=== PATIENT | female | born 2005 | race Caucasian/White ===

== ENCOUNTER 2024-09-27 06:13 | Outpatient (REF) | payer BC, SELFPAY ==
--- NOTE | ~2024-09-27 | US_ITS ---
CLINICAL HISTORY: Unable to feel IUD string, check placement Transabdominal and transvaginal pelvic ultrasound Comparison: None Findings: Uterus 6.5 x 2.4 x 3.7 cm. Endometrium 2 mm. IUD noted in proper position. No significant free fluid. Right ovary 3.0 x 1.2 x 1.7 cm. Left ovary 3.4 x 1.4 x 1.8 cm. No significant focal abnormality. Impression: No significant abnormality This document has been electronically signed by: Stuart Amaya MD on 09/27/2024 19:46:02
--- OUTSIDE RECORDS SUMMARY | 2024-09-27 06:16 | XMS_ITS | Data Portability ---
Author Organization [place] [facility], [facility] Address [id number] [place] [address] Care Team Providers Care Forest Aide Name Role Phone LAURENT DIAZ Primary Care Provider Assessment Encounter Date Assessment Date Assessment LastModified by Organization Details LastModified Time 01/06/2023 01/06/2023 17yo here today to for annual visit She is currently on Tamy FE and likes it. 2 months ago, finished her pack and did not get a period during the 4 days of placebo pills. She then started her new pack. 2 weeks in she got spotting for 2-3 days. She then finished the pack but during the placebo pills did not get her period again. She wanted to wait to get her period so she did not start her new pack for two weeks and never got a period. She restarted and is now two weeks in. We discussed how you can not get a period while on cocp, especially when there are only 4 days placebo. We also discussed the importance of taking the first week of pills on time to prevent ovulation. Taking those pills late will put her at higher risk for . She should wear a condom/abstain for sex until she has taken the pill for seven days but recommended one month. test was negative. I will get blood work including TSH, prolactin, estrogen, FSH, testosterone, bHCG since she normally gets a full period and this is a change but most likely her period will regulate. SHe may have some spotting due to starting to cocps late. She likes the control she is on. Will have her follow up in 3 months to evaluate cycle and cocp type. Physical exam benign, GCC collected. PHQ neg She has received gardisil. All questions answered, she can follow up prn/annually shusung Not available 01/06/2023 15:05:54 05/19/2023 05/19/2023 17yo female here for her ocp check. At her annual she explained she was not getting periods so she stopped taking her pill until she would get her period. We discussed it is normal to not get periods while on cocp and it is important to take consistently. She has been taking her pill at the same time very day for 3 months and reports normal cycles again. I will refill her cocp for 1 year. She can follow up annually/prn shusung Not available 05/19/2023 13:50:13 01/14/2024 01/14/2024 18yo nulliparous woman presenting for annual exam Using cocp for contraception and content with it No [employer] complaints Physical exam showed evidence of yeast .Culture obtained. GCC collected too PHQ Neg SBE encouraged Patient has received gardasil All questions answered, she can follow up prn/annually. best Not available 01/14/2024 10:57:28 08/23/2024 08/23/2024 Telehealth visit to discuss IUD. She is currently on the pill but wants to switch to an IUD. Discussed all IUDs, she would like the mirena so she is covered for 8 years. Discussed placement process, coming from school so will not be able to leave test the day before which is ok will do it the day of. She would like a cervical block with placement. Discussed risks of placement. Aware she can have irreg bleeding for 6 months. [email or web address] Not available 08/23/2024 15:07:59 09/08/2024 09/08/2024 18yo here today for IUD insertion. Was a difficult placement but Dr. Coreas was able to place IUD. Patient did have cramping and some nausea following placement. Improved with time/cold paper towels. Post procedure precautions were reviewed with patient: RTC/Call for heavy bleeding that soaks thru pad/hr, severe abdominal/pelvic pain not controlled with analgesics (ibuprofen, etc), fever > 100.4, chills, foul vaginal odor, change in the length of the string or if the string is not palpable or any other concerns regarding IUD. Check string once daily for first 7 days. Pelvic rest x 72 hours. Pt to expect changes in menstrual pattern that may last for 6-12 months while adjusting to IUD. Pt may stop having menses or it may become very light/scant. Pt to notify me immediately for s/s of . Check for IUD string after each period or monthly if no period occurs. If string length changes or cannot be felt call/RTC for further evaluation. Pt to RTC for f/u US in 2 weeks. [email or web address] Not available 09/08/2024 15:23:34 Plan of Treatment Reminders Order Date Submit Date Provider Last Modified By Organization Details Last Modified Time Details Appointments ANNUAL [facility] 15 2024 10:15A M ALANIS Francois Not available Not available Not available Lab test, urine 2024 025 best In-Office Order, Internal Use Only DO Not Attach Compendium DO Not Attach Compendium, Do Not Delete/merge, [id number] 09/08/2024 17:23:27 Referral None recorded. Procedures None recorded. Surgeries None recorded. Imaging None recorded. Medication Orders [place] 24 Fe 1 mg-20 mcg (24)/75 mg (4) tablet 2022 023 [facility] #[id number], [address] [place], [address], 05/19/2023 13:45:54 Patient TargetsNo targets recorded. Patient InstructionsNo instructions recorded. Reason for Referral None Reported. Results Created Date Observation Date Name Description Value Unit Range Abnormal Flag Note LastModifiedBy Organization Detail LastModifiedTime 01/07/2001/08/2023 CHLAM YDIA/ N. GONOR RHOEA E RNA, TMA, UROGE NITAL chlamydia trachomatis RNA, tma, urogenital NOT DETECT ED not detect ed normal Not Available [facility] [address] [place], [place], [address], 01/08/2023 10:34:05 01/07/2001/08/2023 CHLAM YDIA/ N. GONOR RHOEA E RNA, TMA, UROGE NITAL neisseria gonorrhoeae RNA, tma, urogenital NOT DETECT ED not detect ed normal Not Available [facility] [place] [facility] [address], [place], [address], 01/08/2023 10:34:05 01/07/20 23 01/08/2023 CHLAM YDIA/ N. GONOR RHOEA E RNA, TMA, UROGE NITAL comment The kaveh tical perfo rmanc e debi cteri stics of this assay , when used to test SureP ath(T M) speci mens have been deter mined by [facility]. The modif icati ons have not been clear ed or appro simi by the FDA. This assay has been valid ated pursu ant to the CLIA regul ation s and is used for clini andrew purpo ses. For addit ional infor catina hollins refer to https ://ed ucati on.qu estSaber Seven. com/f aq/FA Q154 (This link is being provi ded for infor mellissa n/ educa marsha l purpo ses only. ) Not Available [facility] [place] [facility] [address], [place], [address], 01/08/2023 10:34:05 01/07/20 23 01/10/2023 TESTO STERO NE, FREE, BIOAV AILAB LE AND TOTAL , MS testosterone , total, MS 22 NG/dL 2-45 For addit ional infor catina hollins e refer to http: //pam byrdque stdia gnost ics.c om/fa q/ Total Testo stero neLCM SMSFA Q165 (This link is being provi ded for infor matio nal/ educa marsha l purpo ses only. ) This test was devel oped and its kaveh tical perfo rmanc e debi cteri stics have been deter mined by [facility] RAOUL Johnson. It has not been clear ed or appro simi by the U.S. Food and Drug Admin istra tion. This assay has been valid ated pursu ant to the [place] [facility] ation s and is used for clini andrew purpo ses. Not Available [facility] [place] [facility] [address], [place], [address], 01/10/2023 14:51:05 01/07/20 23 01/10/2023 TESTO STERO NE, FREE, BIOAV AILAB LE AND TOTAL , MS testosterone , free 0.7 pg/mL 0.2-5. 0 Not Available [facility] [place] [facility] [address], [place], [address], 01/10/2023 14:51:05 01/07/2001/10/2023 TESTO STERO NE, FREE, BIOAV AILAB LE AND TOTAL , MS testosterone ,bioavailabl e 1.4 NG/dL 0.5-8. 5 Not Available [facility] [place] [facility] [address], [place], [address], 01/10/2023 14:51:05 01/07/20 23 01/10/2023 TESTO STERO NE, FREE, BIOAV AILAB LE AND TOTAL , MS sex hormone binding globulin 150 nmol/ L 17-124 high Not Available [facility] [address], [place], [address], 01/10/2023 14:51:05 01/07/2001/10/2023 TESTO STERO NE, FREE, BIOAV AILAB LE AND TOTAL , MS albumin 4.5 g/dL 3.6-5. 1 Not Available [facility] [place] [facility] [address], [address], 01/10/2023 14:51:05 01/07/20 23 01/10/2023 CBC (INCL UDES DIFF/ PLT) white blood cell count 7.0 thous and/u L 3.8-10 .8 normal Not Available [facility] [address] [place], [address], 01/10/2023 14:51:06 01/07/20 23 01/10/2023 CBC (INCL UDES DIFF/ PLT) red blood cell count 4.45 nils on/uL 3.80-5 .10 normal Not Available [facility] [address], [place], [address], 01/10/2023 14:51:06 01/07/20 23 01/10/2023 CBC (INCL UDES DIFF/ PLT) hemoglobin 13.3 g/dL 11.7-1 5.5 normal Not Available [facility] [address], [place], [address], 01/10/2023 14:51:06 01/07/20 23 01/10/2023 CBC (INCL UDES DIFF/ PLT) hematocrit 41.0 % 35.0-4 5.0 normal Not Available [facility] [address], [place], [address], 01/10/2023 14:51:06 01/07/20 23 01/10/2023 CBC (INCL UDES DIFF/ PLT) MCV 92.1 fL 80.0-1 00.0 normal Not Available [facility] [address], [place], [address], 01/10/2023 14:51:06 01/07/20 23 01/10/2023 CBC (INCL UDES DIFF/ PLT) MCH 29.9 pg 27.0-3 3.0 normal Not Available [facility] [address], [place], [address], 01/10/2023 14:51:06 01/07/20 23 01/10/2023 CBC (INCL UDES DIFF/ PLT) MCHC 32.4 g/dL 32.0-3 6.0 normal Not Available [facility] [place] [facility] [address], [place], [address], 01/10/2023 14:51:06 01/07/20 23 01/10/2023 CBC (INCL UDES DIFF/ PLT) RDW 12.2 % 11.0-1 5.0 normal Not Available [facility] [place] [facility] [address], [place], [address], 01/10/2023 14:51:06 01/07/20 23 01/10/2023 CBC (INCL UDES DIFF/ PLT) platelet count 335 thous and/u L 140-40 0 normal Not Available [facility] [address], [place], [address], 01/10/2023 14:51:06 01/07/20 23 01/10/2023 CBC (INCL UDES DIFF/ PLT) MPV 9.6 fL 7.5-12 .5 normal Not Available [facility] [address], [place], [address], 01/10/2023 14:51:06 01/07/20 23 01/10/2023 CBC (INCL UDES DIFF/ PLT) absolute neutrophils 3864 cells /uL 1500-7 800 normal Not Available [facility] [address], [place], [address], 01/10/2023 14:51:06 01/07/20 23 01/10/2023 CBC (INCL UDES DIFF/ PLT) absolute lymphocytes 2387 cells /uL 850-39 00 normal Not Available [facility] [address], [place], [address], 01/10/2023 14:51:06 01/07/20 23 01/10/2023 CBC (INCL UDES DIFF/ PLT) absolute monocytes 546 cells /uL 200-95 0 normal Not Available [facility] [address], [place], [address], 01/10/2023 14:51:06 01/07/20 23 01/10/2023 CBC (INCL UDES DIFF/ PLT) absolute eosinophils 140 cells /uL 15-500 normal Not Available [facility] [place] [facility] [address], [place], [address], 01/10/2023 14:51:06 01/07/20 23 01/10/2023 CBC (INCL UDES DIFF/ PLT) absolute basophils 63 cells /uL 0-200 normal Not Available [facility] [place] [facility] [address], [place], [address], 01/10/2023 14:51:06 01/07/20 23 01/10/2023 CBC (INCL UDES DIFF/ PLT) neutrophils 55.2 % normal Not Available [facility] [place] [facility] [address], [place], [address], 01/10/2023 14:51:06 01/07/20 23 01/10/2023 CBC (INCL UDES DIFF/ PLT) lymphocytes 34.1 % normal Not Available [facility] [place] [facility] [address], [place], [address], 01/10/2023 14:51:06 01/07/20 23 01/10/2023 CBC (INCL UDES DIFF/ PLT) monocytes 7.8 % normal Not Available [facility] [place] [facility] [address], [place], [address], 01/10/2023 14:51:06 01/07/20 23 01/10/2023 CBC (INCL UDES DIFF/ PLT) eosinophils 2.0 % normal Not Available [facility] [place] [facility] [address], [place], [address], 01/10/2023 14:51:06 01/07/20 23 01/10/2023 CBC (INCL UDES DIFF/ PLT) basophils 0.9 % normal Not Available [facility] [place] [facility] [address], [place], [address], 01/10/2023 14:51:06 09/09/19 25 09/08/2024 pregn junaid test, urine Result negati ve Not Available In-Office Order Internal Use Only DO Not Attach Compendium DO Not Attach Compendium, Do Not Delete/merge, [id number] 09/08/2024 14:20:38 Result Notes None recorded. Problems No Known Problems Procedures Surgical History Date Name Laterality Status Provider Name and Address Organization Details Recorded Time 5 IUD Insert completed ALANIS FRANCOIS [address] [place] [address], [phone], [facility] 09/08/2024 15:22:16 procedure on nasal septum completed ALANIS FRANCOIS [address] [place] [address], [phone], [facility] 01/14/2024 10:45:16 Imaging Results None recorded. Procedure Notes None recorded. Medical Equipment None Reported. Allergies Allergen ID Allergen Name Allergen Category Reaction Reaction Severity Criticality Documentation Date Start Date Code Code System Note Provider Name and Address Organization Details Recorded Time 5536863 Omnicef medicatio n hives Not available Not available 10/10/2021 41413 RxNorm Odilia Byrnes [facility] 2 12:44:00 Medications Name Sig Start Date Stop Date Status Note LastModified by Organization Details LastModified Time amoxicillin 500 mg capsule TAKE 1 CAPSULE BY MOUTH 2 TIMES DAILY FOR 10 DAYS 01/05 completed Not Available Not Available Not Available Mirena 21 mcg/24 hr (up to 8 years) 52 mg intrauterin e device IUD in uterus [id number] 2024 active Not Available Not Available Not Avai lable buspirone 5 mg tablet TAKE 1 TABLET BY MOUTH TWICE A DAY 01/13 completed Not Available Not Available Not Available prednisone 10 mg tablet TAKE 3 TABLETS BY MOUTH DAILY X 3 DAYS THEN 2 TAB DAILY X 3 DAYS THEN 1 TAB DAILY X 3 DAYS 01/13 completed Not Available Not Available Not Available doxycycline hyclate 100 mg capsule TAKE 1 CAPSULE BY MOUTH TWICE A DAY active Not Available Not Available No t Available ciprofloxac in 500 mg tablet TAKE 1 TABLET BY MOUTH TWICE A DAY 01/05 completed Not Available Not Available Not Available oxycodone-a cetaminophe n 5 mg-325 mg tablet TAKE 1 TABLET BY MOUTH EVERY 6 HOURS NEEDED FOR SEVERE PAIN 7-10 ON SCALE active Not Available Not Available No t Available azelastine 137 mcg (0.1 %) nasal spray SPRAY 2 SPRAYS INTO EACH NOSTRIL TWICE A DAY 01/13 completed Not Available Not Available Not Available fluticasone propionate 50 mcg/actuati on nasal spray,suspe nsion SPRAY 1 SPRAY INTO EACH NOSTRIL TWICE A DAY 01/13 completed Not Available Not Available Not Available amoxicillin 875 mg-potassiu m clavulanate 125 mg tablet TAKE 1 TABLET BY MOUTH EVERY 12 HOURS FOR 5 DAYS active Not Available Not Available No t Available escitalopra m 10 mg tablet TAKE 1 TABLET BY MOUTH EVERY DAY 01/05 completed Not Available Not Available Not Available atomoxetine 10 mg capsule TAKE ONE CAPSULE DAILY ALONG WITH 25 MG CAPSULE DAILY 01/13 completed Not Available Not Available Not Available atomoxetine 25 mg capsule TAKE 1 CAPSULE BY MOUTH DAILY IN THE MORNING 01/13 completed Not Available Not Available Not Available bupropion HCl XL 150 mg 24 hr tablet, extended release TAKE 1 TABLET DAILY 01/13 completed Not Available Not Available Not Available escitalopra m 5 mg tablet TAKE 1 TABLET BY MOUTH EVERY DAY 01/05 completed Not Available Not Available Not Available dexmethylph enidate ER 10 mg capsule,ext ended release [id number] TAKE 1 CAPSULE BY MOUTH EVERY DAY IN THE MORNING 01/05 completed Not Available Not Available Not Available Lo Loestrin Fe 1 mg-10 mcg (24)/10 mcg (2) tablet Take 1 tablet every day by oral route. 10/17 completed Not Available Not Available Not Available vilazodone 20 mg tablet TAKE ONE TABLET BY MOUTH DAILY WITH FOOD active Not Available Not Available No t Available Nuvessa 1.3 % (65 mg/5 gram) vaginal gel INSERT 1 APPLICATO RFUL BY VAGINAL ROUTE. 01/05 completed Not Available Not Available Not Available Tamy 24 Fe 1 mg-20 mcg (24)/75 mg (4) tablet TAKE 1 TABLET BY MOUTH EVERY DAY FOR 84 DAYS active Not Available Not Available No t Available Vitals Date Recorded Body height Body mass index (BMI) Percentile per age and sex Body mass index (BMI) Body weight Systolic blood pressure Diastolic blood pressure Provider Name and Address Organization Details Last Updated DateTime 3 157.48 cm 63 % 22.7 kg/m2 60068.4 5 g 100 mm[Hg] 70 mm[Hg] Raissa Harper [facility] 3 11:30:08 Date Recorded Body height Body mass index (BMI) Percentile per age and sex Body mass index (BMI) Body weight Systolic blood pressure Diastolic blood pressure Provider Name and Address Organization Details Last Updated DateTime 3 157.48 cm 58 % 22.3 kg/m2 53792.2 7 g 110 mm[Hg] 72 mm[Hg] Odilia Byrnes [facility] 3 13:39:06 Date Recorded Body height Body mass index (BMI) Percentile per age and sex Body mass index (BMI) Body weight Systolic blood pressure Diastolic blood pressure Provider Name and Address Organization Details Last Updated DateTime 4 160.02 cm 48 % 21.6 kg/m2 87119.2 7 g 118 mm[Hg] 64 mm[Hg] Mayte Cleaning [facility] 4 10:38:32 Date Recorded Body height Systolic blood pressure Diastolic blood pressure Provider Name and Address Organization Details Last Updated DateTime 09/08/2024 160.02 cm 118 mm[Hg] 80 mm[Hg] Raissa Harper [facility] 09/08/2024 14:20:28 Social History Question Answer Notes LastModified by Organizat ion Details LastModified Time Tobacco Smoking Status Never Smoker Baldev gongora [facility] 01/08/2022 09:40:52 What Is Your Level Of Alcohol Consumption? Occasional Information not available 01/08/2022 How Many Times Per Week Do You Consume Alcohol? 1-2 Times Per Week Information not available 01/14/2024 Are You Currently Employed? No Information not available 01/06/2023 What Is Your Occupation? Student Student [employer]. Neuroscience, Biochem Double Major Working As Tech At [employer] Information not available 01/14/2024 Do You Have Any Children? No Information not available 10/08/2021 Does Your Partner Physically Hurt You Or Threaten To Hurt You? No Information not available 01/08/2022 Has Your Partner Forced You To Have Sex Or Perform Sex Acts When You Did Not Want To? No Information not available 01/08/2022 Does Your Partner Insult, Scream At Or Talk Down To You? No Information not available 01/08/2022 Does Your Partner Control You Or Any Part Of Your Life? No Information not available 01/08/2022 Are You Afraid Of Your Partner? No Male Information not available 01/08/2022 Drug Use? Yes Marijuanna Information no t available 10/08/2021 Do You Feel Safe At Home? Yes Information not available 10/08/2021 How Many Children Do You Have? 0 Information not available 10/08/2021 Are You Sexually Active? Yes Information not available 01/08/2022 Have You Recently Traveled Abroad? No Information not available 01/08/2022 Sex: Female Functional Status Question Answer Note LastModified by Organizat ion Details LastModified Time What is your exercise level? Occasional Information not available 01/14/2024 Mental Status None recorded. Family History Relationship Description Onset Age of this Age Resolved Age Notes LastModified by Organization Details LastModified Time Maternal Aunt Malignant tumor of thyroid gland Not available 10/08 13:56:16 Father No current problems or disability Not available 09/27 13:56:26 Mother No current problems or disability Not available 09/27 13:56:26 Medical History Condition Response Anxiety Disorder Y Other Y Depression Y Gynecological History Statement/Question Response Flow Moderate Date of LMP 01/02/2024 IPV Screen Done 01/14/2024 STIs/STDs No Sexual Orientation bi-sexual HPV Vaccine Y Duration of Flow (days) 4 Age at Menarche 11 Current Control Method Oral Contra ceptives Frequency of Cycle (Q days) 30 Sexually Active? Y Sexual Problems? N Obstetrics History GPAL:G 0 P 0 0 0 0 Immunizations Vaccine Type Date Status Note Provider Nam e and Address Organization Details Recorded Time Hib, unspecified formulation 4 completed Raissa Trezza null, [facility] 01/06/2023 11:25:37 Hib, unspecified formulation 5 completed Raissa Trezza null, [facility] 01/06/2023 11:25:37 Hib, unspecified formulation 4 completed Raissa Trezza null, [facility] 01/06/2023 11:25:37 Hib, unspecified formulation 4 completed Raissa Trezza null, [facility] 01/06/2023 11:25:37 meningococcal B, OMV 2 completed Raissa Trezza null, [facility] 01/06/2023 11:25:37 meningococcal B, OMV 3 completed Raissa Rhyszza null, [facility] 01/06/2023 11:25:37 HPV9 9 completed Raissa Trezza null, [facility] 01/06/2023 11:25:37 HPV9 7 completed Raissa Trezza null, [facility] 01/06/2023 11:25:37 IPV 9 completed Raissa Trezza null, [facility] 01/06/2023 11:25:37 IPV 4 completed Raissa Simona null, [facility] 01/06/2023 11:25:37 IPV 4 completed Raissa Simona null, [facility] 01/06/2023 11:25:37 IPV 4 completed Raissa Simona null, [facility] 01/06/2023 11:25:37 MMR 9 completed Raissa Simona null, [facility] 01/06/2023 11:25:37 MMR 5 completed Raissa Simona null, [facility] 01/06/2023 11:25:38 COVID-19, mRNA, LNP-S, PF, 30 mcg/0.3 mL dose 1 completed Raissa Simona null, [facility] 01/06/2023 11:25:38 COVID-19, mRNA, LNP-S, PF, 30 mcg/0.3 mL dose 1 completed Raissa Simona null, [facility] 01/06/2023 11:25:38 pneumococcal conjugate PCV 7 5 completed Raissa Simona null, [facility] 01/06/2023 11:25:38 pneumococcal conjugate PCV 7 4 completed Raissa Simona null, [facility] 01/06/2023 11:25:38 pneumococcal conjugate PCV 7 4 completed Raissa Simona null, [facility] 01/06/2023 11:25:38 pneumococcal conjugate PCV 7 4 completed Raissa Simona null, [facility] 01/06/2023 11:25:38 influenza, unspecified formulation 5 completed Raissa Simona null, [facility] 01/06/2023 11:25:38 influenza, unspecified formulation 6 completed Raissa Simona null, [facility] 01/06/2023 11:25:38 Tdap 5 completed Raissa Simona null, [facility] 01/06/2023 11:25:38 varicella 5 completed Raissa Simona null, [facility] 01/06/2023 11:25:38 varicella 5 completed Raissa Simona null, [facility] 01/06/2023 11:25:38 Hep B, unspecified formulation 5 completed Raissa Simona null, [facility] 01/06/2023 11:25:38 Hep B, unspecified formulation 4 completed Raissa Simona null, [facility] 01/06/2023 11:25:38 Hep B, unspecified formulation 4 completed Raissa Simona null, [facility] 01/06/2023 11:25:38 Hep A, ped/adol, 2 dose 2 completed Raissa Simona null, [facility] 01/06/2023 11:25:38 Hep A, ped/adol, 2 dose 1 completed Raissa Simona null, [facility] 01/06/2023 11:25:38 meningococcal MCV4P 1 completed Raissa Simona null, [facility] 01/06/2023 11:25:38 meningococcal MCV4P 6 completed Raissa Simona null, [facility] 01/06/2023 11:25:38 DTaP, unspecified formulation 9 completed Raissa Simona null, [facility] 01/06/2023 11:25:38 DTaP, unspecified formulation 6 completed Raissa Simona null, [facility] 01/06/2023 11:25:38 DTaP, unspecified formulation 4 completed Raissa Simona null, [facility] 01/06/2023 11:25:38 DTaP, unspecified formulation 4 completed Raissa Simona fransisca, [place] - [facility] 01/06/2023 11:25:38 DTaP, unspecified formulation 4 completed Raissa gongora, [place] - [facility] 01/06/2023 11:25:38 Influenza, split virus, quadrivalent, PF 0 completed Raissa Joinermarieshelia gongora, [place] - [facility] 01/06/2023 11:25:38 Past Encounters Encounter ID Performer Location Encounter Start Date Encounter Closed Date Diagnosis/Indication Diagnosis SNOMED-CT Code Diagnosis ICD10 Code Diagnosis Note [id number] EFREN CUBA, [facility] [address] [address] 10/08/2021 13:32:36 10/08/2021 14:18:45 Gynecologic examination 24124455 Z01.419 Contracept ion education [id number] Z30.09 Initial pr escription of oral contraception [id number] Z30.011 Vaginal discharge 649179 006 N89.8 Venereal d isease screening [id number] Z11.3 [id number] EFREN CUBA, [facility] [address] [address] 01/08/2022 09:38:10 01/08/2022 09:48:01 Surveillance of oral contraception [id number] Z30.41 Pill check [id number] Z30 .41 [id number] ALANIS FRANCOIS [facility] [address] [address] 01/06/2023 11:17:17 01/06/2023 12:22:23 [id number] ALANIS FRANCOIS [facility] [address] [address] 05/19/2023 13:34:30 05/19/2023 13:48:23 Contraception care management [id number] Z30.9 [id number] ALANIS FRANCOIS [facility] [address] [address] 01/14/2024 10:30:53 01/14/2024 11:02:33 [id number] ALANIS FRANCOIS [facility] [address] [place] [address] 08/23/2024 10:23:34 08/23/2024 10:57:31 [id number] ALANIS FRANCOIS [facility] [address] [place] [address] 09/08/2024 14:06:16 09/08/2024 15:20:00 Contraception care management [id number] Z30.9 Health Concerns Section Related Observation LastModified by Organization Detai ls LastModified Time None Recorded Concern Status LastModified by Organization Details LastModified Time None Recorded Advance Directives Directive None Recorded Payers Encounter Date Sequence Insurance Name Policy Number Policy Clark Covered Member ID Clark Member ID Guarantor Name 01/06/2023 1 [place] [employer] - FEDERAL EMPLOYEE PROGRAM (PPO) [id number] Crispino [id number] Catherine Crispino 05/19/2023 1 [place] [facility] [employer] - FEDERAL EMPLOYEE PROGRAM (PPO) [address] Crispino [id number] Catherine Crispino 01/14/2024 1 [place] [employer] - FEDERAL EMPLOYEE PROGRAM (PPO) [address] Crispino [id number] Catherine Crispino 08/23/2024 1 [place] ([facility]O) 112 [address] Crispino [id number] Catherine Crispino 09/08/2024 1 [place] [facility] [employer] - FEDERAL EMPLOYEE PROGRAM (PPO) 112 [address] Crispino [id number] Catherine Crispino Notes Date Note Type Note Provider Name and Address Organization Details Recorded Time 01/06/2023 text/html [facility] Annual GYNReported bypatient.History:no gynecologic complaints Menstrual cycle:Irregular cycle intervals Urinary symptoms:No hematuria; No incontinence Vulva:No genital lesion Vagina:Normal vaginal discharge Breast:No breast pain; No breast lump; No nipple discharge Current Contraception:Satisf ied with current contraception; Oral contraceptives Sexual activity:No sexual complaints; No pain during intercourse; Normal libido Psychological symptoms:Depression; Anxiety Preventive measures:Encourage self breast examination; Encourage regular exercise ALANIS FRANCOIS [address], [address], [facility] 01/06/2023 15:05:57 05/19/2023 text/html Pt here for foll ow up of periods. She reports regular periods with the Tamy IGNACIO. She is taking it regularly and likes the pill. ALANIS FRANCOIS [address], [address], [facility] 05/19/2023 13:50:16 01/14/2024 text/html [facility] Annual GYNReported bypatient.Menstrual cycle:Normal menses Urinary symptoms:No hematuria; No incontinence Vulva:No genital lesion Vagina:Normal vaginal discharge Breast:No breast pain; No breast lump; No nipple discharge Current Contraception:Satisf ied with current contraception; Oral contraceptives Sexual activity:No sexual complaints; No pain during intercourse; Normal libido Psychological symptoms:Depression( doing well with meds);Anxiety Preventive measures:Encourage self breast examination; Encourage regular exercise ALANIS FRANCOIS [address], [address], [facility] 01/14/2024 10:57:32 08/23/2024 text/html Pt here to discu ss switching to an IUD. She has been on the pill. She would like the mirena. ALANIS FRANCOIS [address], [address], [facility] 08/23/2024 15:08:03 09/08/2024 text/html Pt here for IUD placement ALANIS FRANCOIS [address], [address], [facility] 09/08/2024 15:23:37 OBGyn Episode No OBEpisode recorded.
--- OUTSIDE RECORDS SUMMARY | 2024-09-27 06:16 | XMS_ITS | Clinical Summary ---
Author Organization [facility] Address [address] [place] [address] Care Team Providers Care Chief Privacy Officer Name Role Phone Pcp, No Primary Care Provider Unavailabl e Social History Tobacco Use Types Packs/Day Years Used Date Smoking Tobacco: Never Assessed Sex and Gender Information Value Date Recorded Sex Assigned at Not on file Gender Identity Not on file Sexual Orientation Not on file Plan of Treatment Health Maintenance Due Date Last Done Comments Hepatitis C Virus Screening 2003 HIV Screening 11/30/2016 HPV Vaccines (1 - 3-dose series) 11/30/2018 DTaP/Tdap/Td Vaccines (1 - Tdap) 11/30/2022 Hepatitis B Vaccines (1 of 3 - 19+ 3-dose series) 11/30/2022 Influenza Vaccine 01/28/2024 04/25/2020, 05/07/2006, 04/16/2005 COVID-19 Vaccine ( - 2023-2 5 season) 2024 02/16/2021, 01/26/2021 Pneumococcal Vaccine: Pediatric (0-5 Years) and At-Risk Patients (6 to 49 Years) Aged Out No longer eligible b ased on patient's age to complete this topic Care Teams Chief Privacy Officer Relationship Specialty Start Date End Date Pcp, No PCP - General 06/19/23
--- OUTSIDE RECORDS SUMMARY | 2024-09-27 06:16 | XMS_ITS ---
Author Name [facility] Organization Unknown History of Medication Use Medication Directions Dispensed Refills Start Date End Date Stat oxycodone-acetaminophen 5 mg-325 mg tablet TAKE 1 TABLET BY MOUTH EVERY 6 HOURS NEEDED FOR SEVERE PAIN 7-10 ON SCALE active amoxicillin 875 mg-potassium clavulanate 125 mg tablet active amoxicillin 875 mg-potassium clavulanate 125 mg tablet TAKE 1 TABLET BY MOUTH EVERY 12 HOURS FOR 5 DAYS 07/21/19 25 completed dexmethylphenidate ER 10 mg capsule,extended release [id number] TAKE 1 CAPSULE BY MOUTH EVERY DAY IN THE MORNING 01/06/20 23 completed bupropion HCl XL 150 mg 24 hr tablet, extended release TAKE 1 TABLET DAILY 01/14/20 24 completed atomoxetine 25 mg capsule TAKE 1 CAPSULE BY MOUTH DAILY IN THE MORNING 01/14/20 24 completed doxycycline hyclate 100 mg capsule TAKE 1 CAPSULE BY MOUTH TWICE A DAY 06/30/19 25 completed Wellbutrin SR 150 mg tablet, 12 hr sustained-release Take 1 tablet twice a day by oral route. 06/30/19 25 active buspirone 5 mg tablet TAKE 1 TABLET BY MOUTH TWICE A DAY 06/30/19 25 completed escitalopram 10 mg tablet TAKE 1 TABLET BY MOUTH EVERY DAY 01/06/20 23 completed atomoxetine 10 mg capsule TAKE ONE CAPSULE DAILY ALONG WITH 25 MG CAPSULE DAILY 01/14/20 24 completed azelastine 137 mcg (0.1 %) nasal spray aerosol SPRAY 2 SPRAYS INTO EACH NOSTRIL TWICE A DAY 06/30/19 25 active atomoxetine 25 mg capsule TAKE 1 CAPSULE BY MOUTH DAILY IN THE MORNING 06/30/19 25 active azelastine 137 mcg (0.1 %) nasal spray SPRAY 2 SPRAYS INTO EACH NOSTRIL TWICE A DAY 01/14/20 24 completed cetirizine 10 mg tablet Take 1 tablet every day by oral route. active Lo Loestrin Fe 1 mg-10 mcg (24)/10 mcg (2) tablet Take 1 tablet every day by oral route. 10/08/2021 10/18/19 22 completed amoxicillin 500 mg capsule TAKE 1 CAPSULE BY MOUTH 2 TIMES DAILY FOR 10 DAYS 01/06/20 22 completed buspirone 5 mg tablet TAKE 1 TABLET BY MOUTH TWICE A DAY 01/14/20 24 completed atomoxetine 10 mg capsule TAKE ONE CAPSULE DAILY ALONG WITH 25 MG CAPSULE DAILY 06/30/19 25 completed Allergies Allergen Reaction Severity Comment Documented Date Source Statu s AUGMENTIN rash mild [facility] OMNICEF hives [facility] Problems Problem Status Onset Date Problem Type Date of Resoluti on Source Family history of attention deficit hyperactivity disorder active 2023-01-08 ProblemAct [facility] Fatigue active 2024-06-30 ProblemAct [facility] Recurrent sinusitis active 2023-07-07 ProblemAct [facility] Allergic rhinitis active 2023-07-07 ProblemAct [facility] Vitamin D deficiency active 2023-07-07 ProblemAct [facility] Obsessive-compulsive disorder active 2023-01-08 ProblemAct [facility] Congestion of nasal sinus active 2024-06-30 ProblemAct [facility] Deviated nasal septum active 2023-07-07 ProblemAct [facility] Acute bacterial sinusitis active 2024-07-31 ProblemAct [facility] Mixed anxiety and depressive disorder active 2023-01-08 ProblemAct [facility] Iron deficiency anemia active 2023-07-07 ProblemAct [facility] Anemia active 2023-01-08 ProblemAct [facility] Immunizations Vaccine Date Source Lot Number Status pneumococcal conjugate PCV 7 04/08/2004 [facility] completed meningococcal MCV4P 03/21/2016 [facility] compl eted pneumococcal conjugate PCV 7 01/08/2005 [facility] completed MMR 03/18/2005 [facility] completed IPV 06/03/2004 [facility] completed DTaP, unspecified formulation 02/02/2004 [facility] completed varicella 02/21/2015 [facility] completed Hib, unspecified formulation 04/08/2004 [facility] completed Hep A, ped/adol, 2 dose 01/28/2021 [facility] [id number] c ompleted meningococcal MCV4P 01/28/20[facility] [id number] compl eted IPV 11/03/2008 [facility] completed meningococcal B, OMV 11/26/2022 [facility] [id number] comp leted DTaP, unspecified formulation 12/09/2005 [facility] completed pneumococcal conjugate PCV 7 02/02/[facility] Influenza, split virus, quadrivalent, PF 04/25/2020 [facility] [id number] completed IPV 02/02/2004 [facility] COVID-19, mRNA, LNP-S, PF, 3 0 mcg/0.3 mL dose 01/26/2021 [facility] [id number] completed Hib, unspecified formulation 03/18/2005 [facility] HPV9 05/13/2017 [facility] Hep B, unspecified formulation 2003 [facility] completed HPV9 07/01/2018 [facility] completed Hib, unspecified formulation 06/03/2004 [facility] completed influenza, unspecified formulation 05/07/2006 [facility] completed Tdap 02/21/2015 [facility] completed DTaP, unspecified formulation 04/08/2004 [facility] completed meningococcal B, OMV 10/08/2021 [facility] [id number] comp leted influenza, unspecified formulation 04/16/2005 [facility] completed Hep A, ped/adol, 2 dose 10/08/2021 [facility] [id number] c ompleted DTaP, unspecified formulation 11/03/2008 [facility] Hep B, unspecified formulation 2003 [facility] completed varicella 01/08/2005 [facility] completed MMR 11/03/2008 [facility] completed Hib, unspecified formulation 02/02/2004 [facility] completed COVID-19, mRNA, LNP-S, PF, 3 0 mcg/0.3 mL dose 02/16/2021 [facility] [id number] completed pneumococcal conjugate PCV 7 06/03/2004 [facility] completed DTaP, unspecified formulation 06/03/2004 [facility] completed Hep B, unspecified formulation 09/06/2004 [facility] completed IPV 04/08/2004 [facility] completed pneumococcal polysaccharide vaccine, 23 valent 07/23/2023 [facility] [id number] completed influenza, seasonal, injecta ble, preservative free 03/29/2024 [facility] completed Influenza, injectable, quadr ivalent, preservative free 07/01/2023 [facility] [id number] completed tetanus toxoid, reduced diph theria toxoid, and acellular pertussis vaccine, adsorbed 07/01/2023 [facility] [id number] completed Encounters Encounter Type Encounter Reason Primary Diagnosis Location Date Ambulatory Encounter for oth general cnsl and advice on contraception Encounter for oth general cnsl and advice on contraception [facility] 09/08/2024 [facility]ulatory [facility] 08/25/2024 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 [facility] 08/23/2024 [facility] 07/13/2024 [facility] 06/30/2024 [facility] 06[facility]30/2024 [facility] 06/30/2024 Ambulatory [facility] 02/22/2024 Ambulatory [facility] 01/28/2024 Ambulatory Encounter for oth general cnsl and advice on contraception Encounter for oth general cnsl and advice on contraception [facility] 01/14/2024 [facility]ulatory [facility] 01/11/2024 [facility]ulatory [facility] 10/22/2023 [facility] 10/04/2023 [facility] 08[facility]30/2023 [facility] 07[facility]26/2023 [facility]ulatory [facility] 07[facility]07/2023 [facility] 07/07/2023 Ambulatory [facility] 07/01/2023 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 [facility] 05/19/2023 Ambulatory [facility] 03/10/2023 Ambulatory [facility] 01/06/2023 Ambulatory [facility] 01/08/2022 Ambulatory [facility] 10/08/2021 Care Team Organization Name Specialty Phone Email Start Date End Freddy Ramachandran [facility] Jose Mcclendon Primary [facility] 01/28/2024 [place] [facility] [employer] 07/19/2023 [facility] PCP Neon Technician 07/19/2023 09/14/2024 [facility] NO PCP Primary Care 07/01/2023 07/01/2023 [facility] PCP,No Primary Care 07/01/2023 09/14/2024 [facility] 04/30/2023 024 [facility] 01/20/2022 [facility] 10/08/2021 01/08/2022
--- OUTSIDE RECORDS SUMMARY | 2024-09-27 06:16 | XMS_ITS | Data Portability ---
Author Organization [place] [facility], Main Office Address [address] [facility] [place] [address] Care Team Providers Care Reel Assembler Name Role Phone TYSHAWN FERREIRA Manufacturing Machine Operator MAY WOOD Gas Specialist KIMO GRANGER Supply Manager VALENTÍN LAU OTHER Assessment Encounter Date Assessment Date Assessment LastModified by Organization Details LastModified Time 01/08/2023 01/08/2023 Video visit to establish care coming from peds Dr. Mcclendon and Dr. Cifuentes, no issue's no concerns she has been seeing ent. She is UTD with MOBILE ENGINEER and she see's a therapist and has an appointment on Thursday with psychiatrist. Meds WAD pr Telehealth visit conducted via secure video connection. Service is medically necessary due to the covid 19 pandemic. The patient and provider are located in [place]. The patient has provided consent for telemedicine. Preceding the evaluation, patient has been identified by verifying full-name and date educated the patient on the availability and benefit of this service and they consented to initiate a virtual visit. Name of participants in telemedicine visit: and Patient: Not available 01/08/2023 14:51:56 07/07/2023 07/07/2023 Mauricio is a video follow up [employer] > recently saw dr. wood had BW done > recommend mauricio get the pnuma vax 23 >would like you opinion Patients medication was reconciled and updated during their visit intake. VS Telehealth visit conducted via secure video connection.Wade ann has verbally accepted and opted for this telemedicine encounter to review and assess current symptoms in lieu of Office Visit. The patient and provider are located in [place]. The patient has provided consent for telemedicine. Preceding the evaluation, patient has been identified by verifying full-name and date educated the patient on the availability and benefit of this service and they consented to initiate a virtual visit. Name of participants in telemedicine visit: Alanna Saucedo and Patient: Mauricio Lopezthomas Left message after apt for Dr Millan to clarify Pneumo 20 vs 23 due now with immune work up Not available 07/07/2023 11:21:40 07/13/2024 07/13/2024 Seek medical attention STAT with emergent signs/symptoms. Disease process, goals of treatment, and complications of untreated acute/chronic illness(es) addressed today discussed. Medication compliance, safety profile (risks, AEs), and expected benefits discussed. Call with any change in condition or lack of anticipated progress. Goals discussed, all questions answered, patient in agreement with plan. Level of medical decision making: moderate Anticipated benefits, risks, and AEs of new medication/medic ation changes reviewed with the patient today. Advised to contact the office with any AEs. [email or web address] Not available 07/31/2024 21:50:50 07/21/2024 07/21/2024 Mauricio is here for her Preventative Health Assessment Tx for sinus infection 07/13/24 Stopped after 3 days and infection resolved Bacterial vs viral ======= Not available 07/21/2024 17:29:56 Plan of Treatment Reminders Order Date Submit Date Provider Last Modified By Organization Details Last Modified Time Details Appointments None recorded. Lab rapid SARS CoV 2 Ag, QL IA, respiratory specimen 2024 025 [facility] Main Office, [address] [place] [address], [address], [place], [address], 5 16:09:02 rapid flu (A+B) 2024 025 [facility] Main Office, [address] [place] [address], [place], [address], 5 16:09:02 rsv (respirator y syncytial virus), rapid, nasopharyng eal 2024 025 [facility] Main Office, [address] [place] [address], [place], [address], 5 16:09:02 Referral None recorded. Procedures None recorded. Surgeries None recorded. Imaging None recorded. Medication Orders amoxicillin 875 mg-potassiu m clavulanate 125 mg tablet 2024 025 [id number], [address] [place] [address], [address], 14:49:13 Patient TargetsNo targets recorded. Patient Instructions Encounter Date Encounter Id Patient Instructions Last Modified By Organization Details Last Modified Time 07/21/2024 [id number] advance care planning: care instructions Not available 07/21/2024 17:30:06 Reason for Referral None Reported. Results Created Date Observation Date Name Description Value Unit Range Abnormal Flag Note LastModifiedBy Organization Detail LastModifiedTime 06/30/1906/30/2024 rsv (resp irato ry syncy tial virus ), rapid , nasop haryn geal RSV negati ve Not Available Main Office [address] [place] [address], [phone], 06/30/2024 15:12:41 06/30/1906/30/2024 rapid flu (A+B) Flu negati ve Not Available Main Office [address] [place] [address], [address], 06/30/2024 15:12:26 06/30/1906/30/2024 rapid SARS CoV 2 Ag, QL IA, respi rator y speci men COVID negati ve Not Available Main Office [address] [facility] [address], [place], [address], 06/30/2024 15:12:25 01/17/20 23 09/03/2021 ADHD asses sment * No observ ation record ed. Jose Mcclendon MD [address] [facility], [place], [address], 07/07/2023 11:11:11 Result Notes None recorded. Problems Name Problem SNOMED Code Status Onset Date Resolution Date Notes Provider Name and Address Organization Details Recorded Time Mixed anxiety and depressive disorder 572253480 Active 2022 Alanna gongora, [place] [facility] 3 13:57:54 Anemia 806086050 Active 2022 Alanna gongora, [place] [facility] 3 13:58:00 Family history of attention deficit hyperactivity disorder 396235745 Active 2022 Alanna Che null, [place] [facility] 3 14:02:08 Obsessive-comp ulsive disorder 014485827 Active 2022 Alanna gongora, [place] [facility] 3 14:02:21 Allergic rhinitis 01589412 Active 2023 Alanna Lepe Grammatic o, NETWORK/TELECOM ENGINEER, S [address] [place], [address], [place] [facility] 4 11:00:00 Recurrent sinusitis 923315044 Active 2023 Alanna Lepe Grammatic o, NETWORK/TELECOM ENGINEER, S [address] [place], [address], [place] [facility] 4 11:00:08 Vitamin D deficiency 68589249 Active 2023 Alanna Lepe Grammatic o, NETWORK/TELECOM ENGINEER, S [address] [place], [address], [place] [facility] 4 11:00:17 Deviated nasal septum 309862407 Active 2023 Alanna Lepe Grammatic o, NETWORK/TELECOM ENGINEER, S [address], [place], [address], [place] [facility] 4 11:08:23 Iron deficiency anemia 11309985 Active 2023 Alanna Lepe Grammatic o, NETWORK/TELECOM ENGINEER, S [address], [place], [address], [place] [facility] 4 11:11:23 Congestion of nasal sinus 26334013 Active 2024 Alanna Lepe Grammatic o, NETWORK/TELECOM ENGINEER, S [address], [place], [address], [place] [facility] 5 15:09:38 Fatigue 03503325 Active 2024 Alanna Lepe Grammatic o, NETWORK/TELECOM ENGINEER, S [address], [place], [address], [place] [facility] 5 15:14:06 Acute bacterial sinusitis 97880610 Active 2024 Monet Rodríguez [address], [place], [address], [place] [facility] 5 21:48:26 Notes:Psych is following Problem Notes None recorded. Procedures Surgical History Date Name Laterality Status Provider Name and Address Organization Details Recorded Time 01/28/20 24 manipulation of displaced nasal septum completed Ramona Light [place] [facility] 06/30/2024 14:58:00 01/07/20 23 Date of Last Pap Smear completed Alanna Che [place] [facility] 01/08/2023 14:03:14 Imaging Results Imaging Date Name Status LastModified by Organiz ation Details LastModified Time 09/03/2021 ADHD assessment * completed Jose Mcclendon MD [address] [place], [address], 07/07/2023 11:11:11 Procedure Notes None recorded. Medical Equipment None Reported. Allergies Allergen ID Allergen Name Allergen Category Reaction Reaction Severity Criticality Documentation Date Start Date Code Code System Note Provider Name and Address Organization Details Recorded Time 7498 Omnicef medicatio n hives Not available Not available 01/08/2023 54403 RxNorm Alanna Chinedu null, [place] [facility] 13:56:52 9420 Augmentin medicatio n rash mild Not available 07/21/20242024 72780 2 RxNorm Roma Argueta null, [place] [facility] 14:48:30 Medications Name Sig Start Date Stop Date Status Note LastModified by Organization Details LastModified Time buspirone 5 mg tablet TAKE 1 TABLET BY MOUTH TWICE A DAY 06/30 completed Not Available Not Available Not Available prednisone 10 mg tablet TAKE 3 TABLETS BY MOUTH DAILY X 3 DAYS THEN 2 TAB DAILY X 3 DAYS THEN 1 TAB DAILY X 3 DAYS 06/30 completed Not Available Not Available Not Available doxycycline hyclate 100 mg capsule TAKE 1 CAPSULE BY MOUTH TWICE A DAY 06/30 completed Not Available Not Available Not Available cetirizine 10 mg tablet Take 1 tablet every day by oral route. active Not Available Not Available No t Available Wellbutrin SR 150 mg tablet, 12 hr sustained-re lease Take 1 tablet twice a day by oral route. 06/30 completed Not Available Not Available Not Available oxycodone-ac etaminophen 5 mg-325 mg tablet TAKE 1 TABLET BY MOUTH EVERY 6 HOURS NEEDED FOR SEVERE PAIN 7-10 ON SCALE 06/30 completed Not Available Not Available Not Available azelastine 137 mcg (0.1 %) nasal spray SPRAY 2 SPRAYS INTO EACH NOSTRIL TWICE A DAY 06/30 completed Not Available Not Available Not Available fluticasone propionate 50 mcg/actuatio n nasal spray,suspen anton SPRAY 1 SPRAY INTO EACH NOSTRIL TWICE A DAY 06/30 completed Not Available Not Available Not Available amoxicillin 875 mg-potassium clavulanate 125 mg tablet TAKE 1 TABLET BY MOUTH EVERY 12 HOURS FOR 5 DAYS 07/21 completed Rash Not Available Not Available Not Available atomoxetine 10 mg capsule TAKE ONE CAPSULE DAILY ALONG WITH 25 MG CAPSULE DAILY 06/30 completed Not Available Not Available Not Available atomoxetine 25 mg capsule TAKE 1 CAPSULE BY MOUTH DAILY IN THE MORNING 06/30 completed Not Available Not Available Not Available bupropion HCl XL 150 mg 24 hr tablet, extended release TAKE 1 TABLET DAILY 06/30 completed Not Available Not Available Not Available vilazodone 20 mg tablet TAKE ONE TABLET BY MOUTH DAILY WITH FOOD active Not Available Not Available No t Available Tamy 24 Fe 1 mg-20 mcg (24)/75 mg (4) tablet TAKE 1 TABLET BY MOUTH EVERY DAY FOR 84 DAYS active Not Available Not Available No t Available Vitals Date Recorded Body height Body mass index (BMI) Percentile per age and sex Body mass index (BMI) Body weight Provider Name and Address Organization Details Last Updated DateTime 01/08/2023 157.48 cm 54 % 21.9 kg/m2 57037[address] [place] [facility] 01/08/2023 13:56:26 Date Recorded Body height Body mass index (BMI) Body mass index (BMI) Percentile per age and sex Body weight Provider Name and Address Organization Details Last Updated DateTime 07/07/2023 157.48 cm 21.9 kg/m2 53 % 79713.[address] [place] [facility] 07/07/2023 10:28:18 Date Recorded Body height Body temperature Heart rate Oxygen saturation Oxygen saturation in Arterial blood by Pulse oximetry Body mass index (BMI) Body mass index (BMI) Percentile per age and sex Body weight Systolic blood pressure Diastolic blood pressure Provider Name and Address Organization Details Last Updated DateTime 157.48 cm 98.3 [degF] 90 /min 98 % 98 % 22.9 kg/m2 62 % 96283.0 5 g 110 mm[Hg] 76 mm[Hg] Ramona Light [place] [facility] 14:53:26 Date Recorded Body height Body mass index (BMI) Percentile per age and sex Body mass index (BMI) Body weight Body temperature Heart rate Oxygen saturation Oxygen saturation in Arterial blood by Pulse oximetry Systolic blood pressure Diastolic blood pressure Provider Name and Address Organization Details Last Updated DateTime 157.48 cm 62 % 22.9 kg/m2 17084.0 5 g 98.1 [degF] 69 /min 98 % 98 % 116 mm[Hg] 78 mm[Hg] Ramona Mccrackene [place] [facility] 10:01:15 Date Recorded Body height Heart rate Systolic blood pressure Diastolic blood pressure Provider Name and Address Organization Details Last Updated DateTime 07/21/2024 157.48 cm 79 /min 118 mm[Hg] 76 mm[Hg] Roma Argueta [place] [facility] 07/21/2024 14:39:10 Date Recorded Body mass index (BMI) Body mass index (BMI) Percentile per age and sex Body weight Provider Name and Address Organization Details Last Updated DateTime 07/21/2024 23.8 kg/m2 69 % 03817.01 g Alanna Saucedo, NETWORK/TELECOM ENGINEER, S [address], [place], [address], [place] [facility] 07/21/2024 15:02:29 Social History Question Answer Notes LastModified by Organizat ion Details LastModified Time Tobacco Smoking Status Never Smoker Alanna gongora, [place] [facility] 01/08/2023 14:00:56 Do You Have An Advance Directive? No Information not available 06/30/2024 What Is Your Level Of Alcohol Consumption? Occasional Information not available 01/08/2023 How Many Times Per Week Do You Consume Alcohol? Less Than 1 Time Per Week Information not available 01/08/2023 Are You Blind Or Do You Have Difficulty Seeing? No Information not available 01/08/2023 Is Blood Transfusion Acceptable In An Emergency? Yes Information not available 06/30/2024 What Is Your Level Of Caffeine Consumption? Moderate Information not available 01/08/2023 What Is Your Code Status? Full Code Information not available 06/30/2024 Are You Currently Employed? Yes Information not available 06/30/2024 Are You Deaf Or Do You Have Serious Difficulty Hearing? No Information not available 01/08/2023 What Type Of Diet Are You Following? REGULAR Information not available 01/08/2023 Do You Have A Directive To Physicians? No Information not available 06/30/2024 Which Illicit Or Recreational Drugs Have You Used? Marijuana Stopped 06/29/24 Information not available 07/21/2024 How Many Times Per Week Do You Exercise? 3-4 Times Per Week Information not available 01/08/2023 Do You Have A Medical Power Of Bushing Press Operator? No Information not available 06/30/2024 What Was The Date Of Your Most Recent Tobacco Screening? 07/21/2024 Information not available 07/21/2024 Have You Ever Been Counseled For Unhealthy Alcohol Use? No Information not available 01/08/2023 What Is Your Relationship Status? Single Information not available 06/30/2024 What Types Of Sporting Activities Do You Participate In? Weight And Cardio Information not available 01/08/2023 Do You Use Any Illicit Or Recreational Drugs? No Information not available 07/21/2024 Have You Used IV Drugs? No Information not available 01/08/2023 Do You Have Any Dietary Restrictions? No Information not available 01/08/2023 Do You Or Have You Ever Used Any Other Forms Of Tobacco Or Nicotine? No Information not available 01/08/2023 Sex: Female Functional Status Question Answer Note LastModified by Organizat ion Details LastModified Time Do you have difficulty walking or climbing stairs? No Information not available 01/08/2023 Do you have transportation difficulties? No Information not available 01/08/2023 Are you able to walk? YESWOREST Information not available 01/08/2023 Do you have difficulty doing errands alone? No Information not available 01/08/2023 Are you able to care for yourself? Yes Information not available 01/08/2023 Do you have difficulty dressing or bathing? No Information not available 01/08/2023 What is your exercise level? Moderate Information not available 01/08/2023 Mental Status Question Answer Note LastModified by Organization D etails LastModified Time Do you have difficulty concentrating, remembering or making decisions? Yes Information no t available 01/08/2023 Family History Relationship Description Onset Age of this Age Resolved Age Notes LastModified by Organization Details LastModified Time Maternal Aunt Malignant tumor of thyroid gland Not available 01/08 13:58:44 Unspecified Relation Malignant tumor of colon Matern al grandm others brothe r Not available 01/08/2023 13:59:23 Medical History No medical history recorded. Gynecological History Statement/Question Response Date of Last Pap Smear 01/06/2023 Obstetrics History GPAL:G 0 P 0 0 0 0 Immunizations Vaccine Type Date Status Note Provider Nam e and Address Organization Details Recorded Time Hib, unspecified formulation 4 completed Magali Sowle null, [place] [facility] 01/13/2024 16:54:09 Hib, unspecified formulation 5 completed Magali Sowle null, [place] [facility] 01/13/2024 16:54:09 Hib, unspecified formulation 4 completed Magali Sowle null, [place] [facility] 01/13/2024 16:54:09 Hib, unspecified formulation 4 completed [place] Sowle null, [place] [facility] 01/13/2024 16:54:09 meningococcal B, OMV 2 completed [place] Sowle null, [place] [facility] 01/13/2024 16:54:09 meningococcal B, OMV 3 completed [place] Sowle null, [place] [facility] 01/13/2024 16:54:09 HPV9 9 completed [place] Sowle null, [place] [facility] 01/13/2024 16:54:09 HPV9 7 completed [place] Sowle null, [place] [facility] 01/13/2024 16:54:09 IPV 9 completed [place] Sowle null, [place] [facility] 01/13/2024 16:54:09 IPV 4 completed [place] Sowle null, [place] [facility] 01/13/2024 16:54:09 IPV 4 completed [place] Sowle null, [place] [facility] 01/13/2024 16:54:09 IPV 4 completed [place] Sowle null, [place] [facility] 01/13/2024 16:54:09 MMR 9 completed [place] Sowle null, [place] [facility] 01/13/2024 16:54:09 MMR 5 completed [place] Sowle null, [place] [facility] 01/13/2024 16:54:09 COVID-19, mRNA, LNP-S, PF, 30 mcg/0.3 mL dose 1 completed [place] Sowle null, [place] [facility] 01/13/2024 16:54:09 COVID-19, mRNA, LNP-S, PF, 30 mcg/0.3 mL dose 1 completed [place] Sowle null, [place] [facility] 01/13/2024 16:54:09 pneumococcal conjugate PCV 7 5 completed [place] Sowle null, [place] [facility] 01/13/2024 16:54:09 pneumococcal conjugate PCV 7 4 completed [place] Sowle null, [place] [facility] 01/13/2024 16:54:09 pneumococcal conjugate PCV 7 4 completed [place] Sow[place] null, [place] [facility] 01/13/2024 16:54:09 pneumococcal conjugate PCV 7 4 completed [place] Sowle null, [place] [facility] 01/13/2024 16:54:09 influenza, unspecified formulation 5 completed [place] Sow[place] null, [place] [facility] 01/13/2024 16:54:09 influenza, unspecified formulation 6 completed [place] Sowle null, [place] [facility] 01/13/2024 16:54:09 Tdap 5 completed [place] Sow[place] null, [place] [facility] 01/13/2024 16:54:09 varicella 5 completed [place] Sowle null, [place] [facility] 01/13/2024 16:54:09 varicella 5 completed [place] Sowle null, [place] [facility] 01/13/2024 16:54:09 Hep B, unspecified formulation 5 completed [place] Sow[place] null, [place] [facility] 01/13/2024 16:54:09 Hep B, unspecified formulation 4 completed [place] Sow[place] null, [place] [facility] 01/13/2024 16:54:09 Hep B, unspecified formulation 4 completed [place] Sow[place] null, [place] [facility] 01/13/2024 16:54:09 Hep A, ped/adol, 2 dose 2 completed [place] Sowle null, [place] [facility] 01/13/2024 16:54:09 Hep A, ped/adol, 2 dose 1 completed [place] Sow[place] null, [place] [facility] 01/13/2024 16:54:09 meningococcal MCV4P 1 completed [place] Sowle null, [place] [facility] 01/13/2024 16:54:09 meningococcal MCV4P 6 completed [place] Sowle null, [place] [facility] 01/13/2024 16:54:09 DTaP, unspecified formulation 9 completed [place] Sowle null, [place] [facility] 01/13/2024 16:54:10 DTaP, unspecified formulation 6 completed [place] Sowle null, [place] [facility] 01/13/2024 16:54:10 DTaP, unspecified formulation 4 completed [facility] [place] [facility] 01/13/2024 16:54:10 DTaP, unspecified formulation 4 completed [place] Sowle null, [place] [facility] 01/13/2024 16:54:10 DTaP, unspecified formulation 4 completed [facility] [place] [facility] 01/13/2024 16:54:10 Influenza, split virus, quadrivalent, PF 0 completed [place] Sowle null, [place] [facility] 01/13/2024 16:54:10 Tdap 4 completed Susanne Jaya null, [place] [facility] 05/30/2024 11:47:34 Influenza, split virus, quadrivalent, PF 4 completed Susanne Jaya null, [place] [facility] 05/30/2024 11:47:34 pneumococcal polysaccharide PPV23 4 completed Ramona Light null, [place] [facility] 06/30/2024 14:54:31 Influenza, split virus, trivalent, PF 4 completed Ramona Light null, [place] [facility] 06/30/2024 14:57:13 Past Encounters Encounter ID Performer Location Encounter Start Date Encounter Closed Date Diagnosis/Indication Diagnosis SNOMED-CT Code Diagnosis ICD10 Code Diagnosis Note [id number] Alanna Saucedo , [place], S Main Office [address] [place] [address] 01/08/2023 13:53:25 01/09/2023 09:48:23 Body mass index 20-24 - normal 339243626 Z68.[address] Macdonald transfer here for Primary Care November 2022 last PE HM BMI 21GYM 3x/wk cardio and weights-2. 5 hoursNo TrainerBal ancedLots fruits/veg sWaterMeat /chickenNo stimulants COVID infection- fall 2021 [facility] for PE HM Iron defic iency anemia 96256402 D50.9 [facility]Ane [facility] in OCPMore iron rich foodsLabs MOBILE ENGINEER Thursday=Phillips d full panelJust had annual Family his tory of attention deficit hyperactivity disorder 709569404 Z81.8 h/oADD/Dep ressiondx over a year agoTherapy =was concernedT rying off meds nowConside ring OCD medsPsych on Thursday/Pt will get us name at f/u Mixed anxi ety and depressive disorder 248619522 F41.8 Est care with Psych Amenorrhea 36009313 N91. 2 Just had annual with GYNJust missed 2 mensesLabs doneWill get us copy [id number] Alanna Saucedo , [place]RE[place], S Main Office [address] [place] [address] [place] [address] 07/07/2023 10:24:28 07/08/2023 07:46:05 Vitamin D deficiency 18851456 E55.9 Multiple infection over last yearENT recImaging with sinus infection/ deviated septumRefe rred to AllergistI mmune and allergy testingCal led back with lab resultsVit D def and low pneumo titersNo h/o pneumonia vaccineNo asthma=HIg h risk with multiple infections Rec Pneumo 23 now per AllergistR epeat labs in 6 wksImmune workup Vit D 2000 units/dayR epeat labs in 6 wks Allergy testing to be completed in next wkNo findings so far with testing Pt appears high risk for infectionI mmune workup ongoingLef t message for Dr Millan to considerPn eumo 20 now to boost immunity and consider immune responseMa y only be able to complete testing with Pneumo 23WIll rec either to pt pending responsePt to f/u for further discussion about workup withsome question Pneum 20 or 23CVS [place] Deviated nasal septum 12 9202158 J34.2 f/u ENT after Immune workup Iron defic iency anemia 72858870 D50.9 Some meat/less at schoolRec researchin g for other iron rich foods than meatMay be able to supplement [facility] Did see MOBILE ENGINEER for f/u-Normal CBC 05/21/do not send CBC [place] [employer] [id number] Alanna Saucedo , [place], S Main Office [address] [place] [phone] 06/30/2024 14:39:25 06/30/2024 16:32:55 Congestion of nasal sinus 42011131 R09.81 Day 1 sick Achy/large r joints/sle eping on air mattress and traveling alot over holidaysHe ad congestion -yellow/gr eenHA/sinu sST scratchyNo coughPND and starts coughNo N/V/DChill s/sweats/n oFatigue /yes MucinexTyl enolVit DMVI Works again-abigail rrow Viral vs bacterialN o fever Only day 1Rapid testing negative today PlanRec day off tomorrow to rest and hydrateNot expose othersMoni torHydrate Mucinex and Tylenolf/u persists/w orsensER with resp distress Fatigue [id number] R53.83 [id number] Alanna Saucedo , SIRENA, S Main Office [address] [place] [address] [phone] 07/21/2024 14:25:21 07/23/2024 16:41:35 Adult health examination [id number] Z00.00 Advanced Directive: not interested today/will considerBM I (current): 24Work on diet and exerciseEx ercise-2x/ wk, and walking on campusWork ing/Pt tech-walki [facility] re Team: UTD?E KG: ?Labs :DUEHep C (18-): orderedHIV : Request HIV and Hep C MOBILE ENGINEER-01/18-U TD with MOBILE ENGINEER ?[place] ist:UTDEye Doctor/Lucila betic: DuePodiatr y:NADERM:s creen Q2 years/no skin changes?COVID Vaccine: X2 =College give for free/will consider when returnsInf luenza Vaccine: 03/29/24Td ap: 07/01/23?Alcoho l Screen:Neg Depression Screen: Positive Advance di rective discussed with patient [id number] Z71.89 Declined Immunization due [id number] Z28.39 COVID due [id number] Monet Rodríguez Main Office [address] [place] [address] [phone] 07/13/2024 09:32:07 08/07/2024 12:36:19 Congestion of nasal sinus [id number] R09.81 Continue cetirizine 10mg daily Acute bact erial sinusitis [id number] J01.90 amoxicilli n 875mg-clav ulanate 125mg bid x 5 daysContin ue mucinex otcSteam, fluids, coughing & deep breathing exercises, balance activity with rest.Cough may linger 6+ weeks, report symptoms that are new, worsening, or not improving Health Concerns Section Related Observation LastModified by Organization Detai ls LastModified Time None Recorded Concern Status LastModified by Organization Details LastModified Time None Recorded Advance Directives Directive N: Payers Encounter Date Sequence Insurance Name Policy Number Policy Clark Covered Member ID Clark Member ID Guarantor Name 01/08/2023 1 [place] [employer] [facility] [employer] 112 Caly Gupta [id number] Mauricio Gupta 07/07/2023 1 [place] [employer] [facility] [employer] 112 Clay Gupta [id number] Mauricio Gupta 06/30/2024 1 [place] [employer] [facility] [employer] 112 Clay Gupta [id number] Mauricio Gupta 07/13/2024 1 [place]: [employer] [facility] [employer] 112 lCay Mckeono [id number] Mauricio Gupta 07/21/2024 1 [place]: [employer] [facility] [employer] 112 Clay Mckeono [id number] Mauricio Gupta Notes Date Note Type Note Provider Name and Address Organization Details Recorded Time 01/08/2023 text/html Video visit to establish care coming from peds Dr. Mcclendon and Dr. Cifuentes, no issue's no concerns she has been seeing ent. She is UTD with MOBILE ENGINEER and she see's a therapist and has an appointment on Thursday with psychiatrist. [facility] Telehealth visit conducted via secure video connection. Service is medically necessary due to the covid 19 pandemic. The patient and provider are located in [place]. The patient has provided consent for telemedicine. Preceding the evaluation, patient has been identified by verifying full-name and date educated the patient on the availability and benefit of this service and they consented to initiate a virtual visit. Name of participants in telemedicine visit: and Patient: Alanna Saucedo NP, S [address], [place], [address], [place] [facility] 01/08/2023 14:54:40 07/07/2023 text/html Mauricio is a video follow up Via [facility]> recently saw dr. wood had BW done> recommend mauricio get the pnuma vax 23>would like you opinion Patients medication was reconciled and updated during their visit intake. [facility] Telehealth visit conducted via secure video connection.Patient has verbally accepted and opted for this telemedicine encounter to review and assess current symptoms in lieu of Office Visit.The patient and provider are located in [place]. The patient has provided consent for telemedicine. Preceding the evaluation, patient has been identified by verifying full-name and date educated the patient on the availability and benefit of this service and they consented to initiate a virtual visit. Name of participants in telemedicine visit: Alanna Saucedo and Patient: Mauriciomargoth Saucedo NP, S [address], [place], [address], [place] [facility] 07/07/2023 20:10:21 06/30/2024 text/html Mauricio is here fo r office acute visit (changed from [facility])> 2 days of sore throat, nasal congestion, headache, itch on chest with no rash, yellow/green mucus from cough and nose Patients medication was reconciled and updated during their visit intake. - Alanna Saucedo, NETWORK/TELECOM ENGINEER, S [address], [place], [address], [place] [facility] 06/30/2024 16:16:30 07/13/2024 text/html Mauricio is here fo r office acute visit> she was seen 06/30/2024 and now experiencing sinus infection type symptoms: nasal congestion, phillips, sinus pressure, pain around the eyes. No relief with otc nasal spray and Musinex. She is leaving tomorrow for [place] Patients medication was reconciled and updated during their visit intake. - Patient reports nasal congestion with green mucous, sinus congestion and cough x 2 weeks. Denies sore throat or fever. She has been taking Mucinex, sudafed and using humidifier. Monetruby Rodríguez [address], [place], [address], [place] [facility] 07/31/2024 21:56:06 07/21/2024 text/html Mauricio is here fo r her Preventative Health AssessmentPatients medication was reconciled and updated during their visit intake. Alanna Saucedo, NETWORK/TELECOM ENGINEER, S [address], [place], [address], [place] [facility] 07/21/2024 17:30:30 OBGyn Episode No OBEpisode recorded.
== END 2024-09-27 06:14 | disposition home or self-care (01) ==
LOC: HO.UMASIMG 06:13
PROVIDERS: Visit Provider Family Medicine
DX: T83.32XA Displacement of intrauterine contraceptive device, initial encounter (principal)
CPT/HCPCS: 76830; 76856

== ENCOUNTER → 2024-09-27 10:00 | Outpatient (BNV) | payer BC, SELFPAY | PROVIDERS: Visit Provider Radiology Diagnostic Radiology | DX: Z97.5 Presence of (intrauterine) contraceptive device (principal) | CPT/HCPCS: 76830; 76856 ==